=== PATIENT | male | born 1985 | race Caucasian/White ===

== ENCOUNTER 2020-09-04 17:09 | Outpatient (CLI) | payer OTHER, SELFPAY ==
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
== END 2020-09-04 17:29 ==
PROVIDERS: Visit Provider Nurse Practitioner Family
DX: M19.071 Primary osteoarthritis, right ankle and foot (principal); M79.671 Pain in right foot
CPT/HCPCS: 73610; 73630

== ENCOUNTER 2021-08-14 16:28 | Emergency (ER) | payer OTHER, SELFPAY ==
[2021-08-14] VITALS (24 sets, daily range): BP systolic 119–131; BP diastolic 79–101; PULSE 91–133; RESP 13–24; TEMP 36.6–39; O2SAT 88–95
--- NOTE | 2021-08-14 16:30 | RT.EKG_ITS ---
APPROVED REPORT Exam: Resting ECG Reason for Exam: difficulty breathing Patient Location: E HR:121 bpm ECG Measurements Heart Rate 121 AXIS VA 149 P 22 QRSd 91 QRS -87 QT 299 T 33 QTc 425 Conclusion Sinus tachycardia...rate> 99 Left anterior fascicular block...axis(240,-40), init forces inf ST elev, probable normal early repol pattern...ST elevation, age<55
--- NOTE | 2021-08-14 16:45 | DI.CT_ITS ---
Exam(s) CT CHEST PE CTA EXAM: CT CHEST PE CTA CLINICAL HISTORY: back pain, cough, +covid. TECHNIQUE: Imaging Protocol: Axial CT angiography was performed with multi-slice acquisition and mu lti-planar and/or 3D reconstructions. CONTRAST MATERIAL: Intravenous: Omnipaque 350 Contrast volume:100 mL COMPARISON: CT CHEST ABD PELVIS WITH CONTRAST from 01/25/2014 FINDINGS: The examination is limited due to patient motion artifact. Tracheobronchial tree: Patent where visualized. Pulmonary parenchyma: There is a patchy ground-glass infiltrate in the left upper lobe and left lower lobe. There are areas of scarring or atelectasis in the left lower lobe. No architectural distorti on. Pulmonary Arteries: No central pulmonary embolus is identified. The peripheral pulmonary arteries ar e difficult to evaluate due to patient motion. Mediastinum and Norma: No dominant adenopathy or fluid collection. Visualized thyroid gland: Unremarkable. Pleura: No effusion or pneumothorax. Heart: The heart is not dilated. No coronary artery calcifications are seen. No pericardial effusion. Aorta: Thoracic aorta non-dilated. No evidence of dissection. Upper abdomen: Unremarkable. Soft tissues: Unremarkable. Bones: Within normal limits for the patient's age.Old healed left rib fractures. IMPRESSION: 1. Limited evaluation of the peripheral pulmonary arteries due to significant patient motion artifact . No central pulmonary embolus is identified. If there is continued clinical concern, consider repe at examination. 2. Patchy ground-glass opacities consistent with an atypical pneumonia. Findings would be consistent with a COVID-19 etiology. 3. No evidence of thoracic aortic dissection or aneurysm. RADIATION DOSE DELIVERED: 583.52mGy.cm Total DLP DATA REPOSITORY: All CT scans at this facility are submitted to the National Radiology Data Registry (NRDR) Dose Index Registry (DIR) with the [employer] (ACR). RADIATION OPTIMIZATION: All CT scans at this facility use at least one of these dose optimization te chniques: automated exposure control; mA and/or kV adjustment per patient size (includes targeted exa ms where dose is matched to clinical indication); or iterative reconstruction.
[2021-08-14] MEDS: ACETAMINOPHEN 1,000 MG/100 ML BTL 400 MG IVPB (17:02)
[2021-08-14 17:05] LABS: Lactate 1.1 mmol/L (0.6-1.4)
[2021-08-14 17:16] LABS: Abs Immature Grans 0.02 10^3/uL (0.0-0.06); Absolute Basophil Count 0.02 10^3/uL (0.0-0.2); Absolute Eosinophil Count 0.13 10^3/uL (0.0-0.7); Absolute Lymphocyte Count 1.09 10^3/uL (1.2-3.4); Absolute Monocyte Count 0.63 10^3/uL (0.1-0.8); Absolute Neutrophil Count 4.07 10^3/uL (1.2-6.7); Basophils % 0.3; Eosinophils % 2.2; HGB 17.1 g/dL (13.5-17.5); Immature Grans % 0.3; Lymphocytes % 18.3; MCH 29.6 pg (27.0-33.0); MCHC 33.5 % (32.0-36.0); MCV 88.2 fL (80-95); Monocytes % 10.6; Neutrophils % 68.3; Nucleated RBC 0 %; Platelet Count 184 10^3/uL (130-400); RBC 5.78 10^6/uL (4.36-5.78); RDW 12.8 % (11.8-14.1); RDW-SD 41.5 fL; WBC 5.96 10^3/uL (4.4-10.8)
[2021-08-14] MEDS: Normal Saline - Diluent 50 ML VIAL IV ×2 (17:16→19:48)
[2021-08-14] MEDS: Normal Saline Flush 10 ML SYR IVP (17:17)
[2021-08-14] MEDS: Omnipaque 350 MG/ML 100 ML BTL IJ ×2 (17:17→19:48)
[2021-08-14 17:24] LABS: ALT 46 U/L (16-63); AST 40 U/L (15-37); Albumin 4.2 g/dL (3.4-5.0); Alkaline Phosphatase 49 U/L (46-116); Anion Gap 7.9 mmol/L (3-11); BUN 16 mg/dL (7-18); Bilirubin, Total 0.5 mg/dL (0.2-1.0); CO2 30.1 mmol/L (21.0-32.0); CREATININE 1.3 mg/dL (0.70-1.30); Calcium 8.8 mg/dL (8.5-10.1); Chloride 98 mmol/L (98-107); Glucose 113 mg/dL (74-106); Sodium 136 mmol/L (136-145); Total Protein 8.4 g/dL (6.4-8.2)
[2021-08-14 17:25] LABS: Troponin I < 0.05 ng/mL (<0.06)
--- NOTE | 2021-08-14 17:42 | ED.GENADUL_ITS ---
Discharge Plan Disposition Patient Disposition: HOME Condition: Stable Discharge Details Clinical Impression: COVID-19 Primary Care Provider: None,None ED Provider: Tiffany Luna Home Meds and New Rx's Prescriptions: Continued levalbuterol tartrate [Xopenex HFA] 1 PUFF HFA aerosol inhaler 2 puff Inhalation PRN PRNRF: 0 albuterol sulfate [ProAir HFA] 200 PUFF HFA aerosol inhaler 0 gm Inhalation Q4H PRN PRN (Reason: Wheezing) Qty: 1 RF: 0 Flovent Diskus 100 mcg/actuation Blister With Device 2 inh INHALATION DAILY RF: 0 Discharge Instructions Instructions: COVID-19 (Coronavirus Disease 2019) (ED) Additional Instructions: Your symptoms are most consistent with COVID-19. Please encourage hydration. You did appear dehydrated when you first arrived. You may use Tylenol and/or ibuprofen as needed for discomfort or fevers. Please continue to monitor your home oxygen. If less than 90 I would like for you to return to the emergency department for further evaluation. Please continue to treat any wheezing or asthma symptoms as you have historically. Please follow-up with your primary care in 1 week for reevaluation. If you develop any new or worsening symptoms please seek care urgently once again. Please continue to quarantine. Medical Decision Making Patient is a pleasant 36-year-old gentleman presenting today with chief complaint of chills, cough and back pain. He states the back pain is chronic, associates with previous fracture. States he was diagnosed Covid positive yesterday. Patient is not vaccinated. Patient does have a history of asthma. States that he has been short of breath and has been sounding his updraft very beneficial. Not currently feeling significantly short of breath. Has not taken anything for his chills or discomfort. Denies any GI upset. He does endorse loss of taste and smell. Denies any chest pain. On exam, patient appears nontoxic. He is notably tachycardic, particularly with movement. He is febrile with a temp of 39. Maintaining his oxygen saturation. Blood pressure is normal. Patient does appear dry on exam. Lungs are clear./No tachycardia, his cardiac auscultation is normal. Abdomen benign. No lower extremity edema. No exam of his back twinge appreciate any rash. He does have good movement. However, he is tender over the lumbar spine but again, this seems to be chronic in nature and is not endorsing any acute change in this. The patient's notable tachycardia, cough and intermittent shortness of breath, I do feel that CT PE protocol would be appropriate. We will give IV acetaminophen and replenish fluids. Patient is obese and has a history of asthma. I do feel that his risk factors make him eligible for Mab infusion. Patient I discussed risk/benefits as well as potential complications associated with this infusion. He voiced understandi ng would like to move forward. Labs reviewed. No leukocytosis. Stable H&H. Lymphocytes are slightly low, consistent with Covid. Lactate within normal levels. CMP without significant abnormality. AST is slightly elevated at 40. CT reviewed by radiologist: FINDINGS: Limitations: Moderate respiratory motion artifact degrades the images of the bilateral segmental and subsegmental pulmonary arteries. Pulmonary arteries: Given the limitation, there are no large filling defects within the main left or right pulmonary artery or its lobar branches. Aorta: Unremarkable. No aortic aneurysm. No aortic dissection. Lungs: A few patchy scattered bilateral rounded peripheral opacities consistent with an atypical pneumonia. More focal atelectasis versus consolidation in the lingula. Pleural spaces: Unremarkable. No pneumothorax. No pleural effusion. Heart: Unremarkable. No cardiomegaly. No pericardial effusion. Lymph nodes: Unremarkable. No enlarged lymph nodes. Bones/joints: Multiple old healed posteromedial mid to lower left rib fractures. Fixation screw partially visualized in L1. No acute fracture in the chest. Soft tissues: Unremarkable. IMPRESSION: 1. Limited CT angiogram due to significant motion degradation artifact. Given the limitation, there are no large central filling defects within the main or lobar bilateral pulmonary artery branches. Evaluation to the segmental and subsegmental levels is not possible. If clinical suspicion for PE remains high and renal function is satisfactory, consider a repeat study. 2. Bilateral patchy parenchymal opacities consistent with an atypical pneumonia. 3. No evidence for thoracic aortic dissection or aneurysm. Patient received Mab infusion. Received 1 L of fluids as well as Tylenol. Reevaluated patient. Significant improvement. Heart rate is 79. Maintaining pulse ox of 90. He states that his pain is significantly improved. His temp is down. We discussed the limitations associated with the CT. As he continues to be slightly tachycardic, particularly with movement, and had significant tachycardia initially, I do feel that repeating the CT would be appropriate to rule out pulmonary embolism. Patient I discussed risk and benefits of repeat CT he would like to move forward with this. His creatinine clearance is normal. We will continue to hydrate the patient. Repeat CT reviewed by radiologist: FINDINGS: Pulmonary arteries: Contrast fills the pulmonary artery and its branch vessels satisfactorily. No intraluminal filling defect to suggest pulmonary embolism. A pseudo filling defect is identified in a branch of the right upper lobe pulmonary arteries best seen on series 6, image 213 adjacent to dense filling contrast in the SVC. Findings likely district sales representative of a reconstruction CT artifact. Aorta: Unremarkable. No aortic aneurysm. No aortic dissection. Trachea: Layering secretions in the lower trachea/tim. Lungs: Bilateral faint patchy peripheral parenchymal opacities consistent with an atypical pneumonia. Tiny foci of lingular and bilateral lower lobe aspirations. Pleural spaces: Unremarkable. No pneumothorax. No pleural effusion. Heart: Unremarkable. No cardiomegaly. No pericardial effusion. Lymph nodes: Prominent reactive bilateral hilar and mediastinal lymph nodes. Bones/joints: Unremarkable. No acute fracture. Soft tissues: Unremarkable. IMPRESSION: 1. No pulmonary embolism. 2. Bilateral patchy parenchymal opacities consistent with an atypical pneumonia.Imaging features can be seen with COVID-19 pneumonia, though are nonspecific and can occur with a variety of infectious and noninfectious processes. (Reference: Jeffry) 3. Layering secretions in the tracheobronchial tree. Tiny the foci of lingular and bilateral lower lobe aspirations. 4. Reactive mediastinal and bilateral hilar lymph nodes. Discussed findings with the patient. He reports he is feeling much improved. Will continue to quarantine. He was sent home with pulse oxymeter. Will continue to monitor at home. Will use his albuterol as previously prescribed. Return precautions discussed. All of his quesitons and concerns were addressed, he is in agreement with this plan. [facility]. HPI General Mode of arrival: ambulatory . Date/Time Provider Initiated Documentation: 08/14/21 16:30 . Limitations to Documentation: no limitations . Information obtained by: RN notes reviewed . History of Present Illness 36 year old M presents to the emergency department with the chief complaint of COVID- 19, cough, fever, chills, back pain, described as moderate, with intensity rated at 8. Quality is described as aching, and is localized to the chest (cough) and back. Patient reports no radiation. Patient started experiencing this day(s) and it has been constant. No relieving factors improve symptom(s), No exacerbating factors reported . Patient notes cough, diaphoresis, fever/chills and shortness of breath; denies chest pain, headaches, nausea/vomiting and rash. Patient did receive the following treatments prior to arrival, other (albuterol) Related Data Home Medications Medication Instructions Recorded Confirmed albuterol sulfate [ProAir HFA] 0 gm INHALATION Q4H PRN PRN #1 inh 05/08/13 08/14/21 levalbuterol tartrate [Xopenex HFA] 2 puff INHALATION PRN PRN 05/08/13 01/25/14 Flovent Diskus 2 inh INHALATION DAILY 08/14/21 08/14/21 Previous Rx's Medication Instructions Recorded albuterol sulfate [ProAir HFA] 0 gm INHALATION Q4H PRN PRN #1 inh 05/08/13 Allergies Allergy/AdvReac Type Severity Reaction Status Date / Time No Known Allergies Allergy Unverified 08/14/21 16:37 General Stated Complaint: RespSymp CHRIS: 3 Review of Systems Constitutional Constitutional: Reports as per HPI, Reports chills, Reports fever(s), Denies headache(s), Reports lethargy and Reports malaise ENT Ears, Nose, Mouth, and Throat: Reports dizziness and Denies headache(s) Cardiovascular Cardiovascular: Reports as per HPI, Denies chest pain, Denies chest pain at rest, Denies chest pain with activity, Denies edema, Reports lightheadedness and Reports dyspnea Respiratory Respiratory: Reports as per HPI, Denies chest congestion, Reports cough, Denies pain on inspiration, Denies pain with cough, Reports dyspnea and Denies wheezing Gastrointestinal Gastrointestinal: Reports as per HPI, Denies abdominal pain, Denies diarrhea, Denies nausea and Denies vomiting Genitourinary Genitourinary: Denies system reviewed and no additional complaints, except as documented (denies change in urinary habits) Musculoskeletal Musculoskeletal: Reports as per HPI and Reports back pain Integumentary/Breasts Skin/Breast: Reports as per HPI and Denies rash Neurologic Neurologic: Reports as per HPI, Reports dizziness and Denies headache(s) Allergic/Immunologic Allergic/Immunologic: Denies wheezing [facility] Medical History (Updated 08/14/21 @ 20:15 by KETURAH Harris) Asthma Social History Smoking/Tobacco Use Status: Current every day Smoking risk assessment performed?: Yes Drug use: Never Do you feel safe at home: Yes Do you feel safe in your relationship?: Yes Exam Const General: cooperative, healthy appearing, comfortable, no acute distress and well developed Nutritional Appearance: well nourished and obese Orientation: alert, awake and oriented x3 HENMT Head: normal to inspection Ears: hearing grossly normal bilaterally Mouth: mucous membranes dry Chest Chest: normal inspection of the chest, normal palpation of entire chest wall and no crepitus Resp Effort & Inspection: normal respiratory effort, able to speak in complete sentences and no respiratory distress Auscultation: clear to auscultation bilaterally, no rales, no rhonchi and no wheezes Cardio Rate: tachycardic Rhythm: regular rhythm Heart Sounds: S1 normal and S2 normal GI Inspection: normal to inspection, no edema and non-distended Palpation: soft, no hepatosplenomegaly, not firm, no guarding, not rigid and nontender Auscultation: normal bowel sounds Back/Spine/Pelvis Thoracic/Lumbar Spine: thoracic and lumbar spine normal to inspection, No paraspinal tenderness, No thoracic spinal tenderness and No lumbar spinal tenderness (pain over right side of lower back) Skin General skin exam: no rashes or lesions noted Trauma: no lacerations or abrasions Neuro General: patient alert, patient awake and patient oriented x3 Cognition: normal cognition Speech: speech normal Gait: normal gait Extrem General: normal to inspection, capillary refill normal, no pedal edema, no calf tenderness and normal gait Psych Appearance: grossly normal and well kempt Mental Status: mental status grossly normal Speech and Movement: speech and movement normal Course Vital Signs Vital signs: Vital Signs Temperature 39.0 C H 08/14/21 16:34 Pulse 133 H 08/14/21 16:34 Respiratory Rate 18 08/14/21 16:34 Blood Pressure 129/101 H 08/14/21 16:34 Pulse Oximetry 93 08/14/21 16:34 Temperature 39.0 C H 08/14/21 17:02 Temperature Source Oral 08/14/21 16:34 Pulse 133 H 08/14/21 16:34 Respiratory Rate 18 08/14/21 16:34 Respiratory Effort 08/14/21 17:13 Blood Pressure 129/101 H 08/14/21 16:34 Pulse Oximetry 93 08/14/21 16:34 Pain Level 8 08/14/21 17:02 Lab/Test Results Lab/Test Results: Laboratory Tests Range/Units 08/14/21 08/14/21 08/14/21 16:55 16:55 16:55 WBC (4.4-10.8) 10^3/uL 5.96 RBC (4.36-5.78) 10^6/uL 5.78 Hgb (13.5-17.5) g/dL 17.1 Hct (40.0-50.0) % 51.0 H MCV (80-95) fL 88.2 MCH (27.0-33.0) pg 29.6 MCHC (32.0-36.0) % 33.5 RDW (11.8-14.1) % 12.8 Plt Count (130-400) 10^3/uL 184 MPV (8.0-11.0) fL 10.0 Immature Gran % 0.3 Neutrophils % 68.3 Lymphocytes % 18.3 Monocytes % 10.6 Eosinophils % 2.2 Basophils % 0.3 Nucleated RBC % % 0 Absolute Neutrophils (1.2-6.7) 10^3/uL 4.07 Absolute Lymphocytes (1.2-3.4) 10^3/uL 1.09 L Absolute Monocytes (0.1-0.8) 10^3/uL 0.63 Absolute Eosinophils (0.0-0.7) 10^3/uL 0.13 Absolute Basophils (0.0-0.2) 10^3/uL 0.02 VBG Lactate (0.6-1.4) mmol/L 1.1 Sodium (136-145) mmol/L 136 Potassium (3.5-5.1) mmol/L 4.0 Chloride (98-107) mmol/L 98 Carbon Dioxide (21.0-32.0) mmol/L 30.1 Anion Gap (3-11) mmol/L 7.9 BUN (7-18) mg/dL 16 Creatinine (0.70-1.30) mg/dL 1.3 Estimated GFR/1.73 m2 (mL/min/1.73m2) >= 60.00 Glucose (74-106) mg/dL 113 H Calcium (8.5-10.1) mg/dL 8.8 Total Bilirubin (0.2-1.0) mg/dL 0.5 AST (15-37) U/L 40 H ALT (16-63) U/L 46 Alkaline Phosphatase (46-116) U/L 49 Troponin I (<0.06) ng/mL < 0.05 Total Protein (6.4-8.2) g/dL 8.4 H Albumin (3.4-5.0) g/dL 4.2
--- NOTE | 2021-08-14 18:04 | DI.VRAD_ITS ---
PROCEDURE INFORMATION: Exam: CTA Chest With Contrast Exam date and time: 08/14/2021 4:50 PM Age: 36 years old Clinical indication: Other: Back pain, cough, covid positive TECHNIQUE: Imaging protocol: Computed tomographic angiography of the chest with contrast. 3D rendering (Not supervised by radiologist): MIP and/or 3D reconstructed images were created by the technologist. Radiation optimization: All CT scans at this facility use at least one of these dose optimization techniques: automated exposure control; mA and/or kV adjustment per patient size (includes targeted exams where dose is matched to clinical indication); or iterative reconstruction. Contrast material: OMNIPAQUE 350; Contrast volume: 100 ml; Contrast route: INTRAVENOUS (IV); COMPARISON: No relevant prior studies available. FINDINGS: Limitations: Moderate respiratory motion artifact degrades the images of the bilateral segmental and subsegmental pulmonary arteries. Pulmonary arteries: Given the limitation, there are no large filling defects within the main left or right pulmonary artery or its lobar branches. Aorta: Unremarkable. No aortic aneurysm. No aortic dissection. Lungs: A few patchy scattered bilateral rounded peripheral opacities consistent with an atypical pneumonia. More focal atelectasis versus consolidation in the lingula. Pleural spaces: Unremarkable. No pneumothorax. No pleural effusion. Heart: Unremarkable. No cardiomegaly. No pericardial effusion. Lymph nodes: Unremarkable. No enlarged lymph nodes. Bones/joints: Multiple old healed posteromedial mid to lower left rib fractures. Fixation screw partially visualized in L1. No acute fracture in the chest. Soft tissues: Unremarkable. IMPRESSION: 1. Limited CT angiogram due to significant motion degradation artifact. Given the limitation, there are no large central filling defects within the main or lobar bilateral pulmonary artery branches. Evaluation to the segmental and subsegmental levels is not possible. If clinical suspicion for PE remains high and renal function is satisfactory, consider a repeat study. 2. Bilateral patchy parenchymal opacities consistent with an atypical pneumonia. 3. No evidence for thoracic aortic dissection or aneurysm. Dictated and Authenticated by: Garcia Salazar MD. Ordering:ALEXANDRO Allen MD
--- NOTE | 2021-08-14 18:27 | NUR.NOTE ---
pt not tolerating BP cuff will recheck intermittently Nursing Note:
--- NOTE | 2021-08-14 19:00 | DI.CT_ITS ---
Exam(s) CT CHEST PE CTA EXAM: CT CHEST PE CTA CLINICAL HISTORY: motion artifact on initial, concerned for PE. TECHNIQUE: Imaging Protocol: Axial CT angiography was performed with multi-slice acquisition and mu lti-planar and/or 3D reconstructions. CONTRAST MATERIAL: Intravenous: Omnipaque 350 Contrast volume:100 mL COMPARISON: CT CT CHEST PE CTA from 08/14/2021 FINDINGS: Tracheobronchial tree: Patent where visualized. Pulmonary parenchyma: There are bilateral patchy ground-glass opacities in the lungs. There are foca l areas of consolidation involving the left lingula and left lower lobe. No architectural distortion . Pulmonary Arteries: No evidence of filling defect to suggest pulmonary emboli. Mediastinum and Norma: Mildly prominent reactive lymph nodes. Visualized thyroid gland: Unremarkable. Pleura: No effusion or pneumothorax. Heart: The heart is not dilated. No coronary artery calcifications are seen. No pericardial effusion. Aorta: Thoracic aorta non-dilated. No evidence of dissection. Upper abdomen: Unremarkable. Soft tissues: Unremarkable. Bones: Within normal limits for the patient's age.Old left rib fractures. IMPRESSION: 1. No evidence of pulmonary embolism, thoracic aortic dissection or aneurysm. 2. Bilateral ground-glass parenchymal opacities consistent with an atypical pneumonia such as can be seen with COVID-19 pneumonia among other infectious and noninfectious processes. RADIATION DOSE DELIVERED: 688.44mGy.cm Total DLP DATA REPOSITORY: All CT scans at this facility are submitted to the National Radiology Data Registry (NRDR) Dose Index Registry (DIR) with the [employer] (ACR). RADIATION OPTIMIZATION: All CT scans at this facility use at least one of these dose optimization te chniques: automated exposure control; mA and/or kV adjustment per patient size (includes targeted exa ms where dose is matched to clinical indication); or iterative reconstruction.
[2021-08-14] MEDS: Lactated Ringers 1,000 ML 1000 ML IV (19:10)
--- NOTE | 2021-08-14 20:07 | DI.VRAD_ITS ---
PROCEDURE INFORMATION: Exam: CTA Chest With Contrast Exam date and time: 08/14/2021 7:09 PM Age: 36 years old Clinical indication: Other: ? Pe TECHNIQUE: Imaging protocol: Computed tomographic angiography of the chest with contrast. 3D rendering (Not supervised by radiologist): MIP and/or 3D reconstructed images were created by the technologist. COMPARISON: CT CHEST PE CTA 08/14/2021 5:16 PM FINDINGS: Pulmonary arteries: Contrast fills the pulmonary artery and its branch vessels satisfactorily. No intraluminal filling defect to suggest pulmonary embolism. A pseudo filling defect is identified in a branch of the right upper lobe pulmonary arteries best seen on series 6, image 213 adjacent to dense filling contrast in the SVC. Findings likely account service representative of a reconstruction CT artifact. Aorta: Unremarkable. No aortic aneurysm. No aortic dissection. Trachea: Layering secretions in the lower trachea/tim. Lungs: Bilateral faint patchy peripheral parenchymal opacities consistent with an atypical pneumonia. Tiny foci of lingular and bilateral lower lobe aspirations. Pleural spaces: Unremarkable. No pneumothorax. No pleural effusion. Heart: Unremarkable. No cardiomegaly. No pericardial effusion. Lymph nodes: Prominent reactive bilateral hilar and mediastinal lymph nodes. Bones/joints: Unremarkable. No acute fracture. Soft tissues: Unremarkable. IMPRESSION: 1. No pulmonary embolism. 2. Bilateral patchy parenchymal opacities consistent with an atypical pneumonia.Imaging features can be seen with COVID-19 pneumonia, though are nonspecific and can occur with a variety of infectious and noninfectious processes. (Reference: Jeffry) 3. Layering secretions in the tracheobronchial tree. Tiny the foci of lingular and bilateral lower lobe aspirations. 4. Reactive mediastinal and bilateral hilar lymph nodes. REFERENCES: Jeffry Torres, et al., Radiological Society of [place] Expert Consensus Statement on Reporting Chest CT Findings Related to COVID-19. Endorsed by the Society of Thoracic Radiology, the [employer] [employer], and RSNA. Published January 23, 2020. Dictated and Authenticated by: Garcia Salazar MD. Ordering:ALEXANDRO Allen MD
== END 2021-08-14 20:39 | disposition home or self-care (01) ==
PROVIDERS: Emergency Provider Physician Assistant
DX: U07.1 COVID-19 (principal); R05.1 Acute cough; R06.02 Shortness of breath; R43.8 Other disturbances of smell and taste; R00.0 Tachycardia, unspecified; E86.0 Dehydration; R50.9 Fever, unspecified
CPT/HCPCS: 36415; 71275; 80053; 93005; 96361; 96365; 99285; 83605; 84484; 85025; 93010; J0131; J3490

== ENCOUNTER 2021-08-22 10:50 | Emergency (ER) | payer OTHER, SELFPAY ==
[2021-08-22 10:54] VITALS: BP 129/93; PULSE 90; RESP 16; TEMP 36.1; O2SAT 95
--- NOTE | 2021-08-22 11:20 | W.ED.GENAD ---
Discharge Plan Disposition Patient Disposition: HOME Condition: Stable Discharge Details Clinical Impression: Pharyngitis, Dental infection Primary Care Provider: Princess Lamas ED Provider: Tiffany Luna Home Meds and New Rx's Prescriptions: New penicillin V potassium 500 mg tablet 500 mg PO QID 7 Days Qty: 28 RF: 0 Continued levalbuterol tartrate [Xopenex HFA] 1 PUFF HFA aerosol inhaler 2 puff Inhalation PRN PRNRF: 0 albuterol sulfate [ProAir HFA] 200 PUFF HFA aerosol inhaler 0 gm Inhalation Q4H PRN PRN (Reason: Wheezing) Qty: 1 RF: 0 Flovent Diskus 100 mcg/actuation Blister With Device 2 inh INHALATION DAILY RF: 0 Discharge Instructions Instructions: Dental Abscess (ED), Pharyngitis (ED) Additional Instructions: Your rapid strep testing was negative here. However, I am concerned that you are developing a dental infection. Please take the antibiotics as prescribed. Even if symptoms improve, please take the entire course. You will need definitive care with a dentist, please call on Tuesday to schedule follow-up appointment. Encourage hydration. Tylenol and ibuprofen as needed for discomfort. If you develop fevers, increased pain, swelling or other new/worsening symptoms to seek care urgently once again. Referrals: Princess Lamas [Primary Care Provider] - Discharge Data Discharge Date/Time-TO BE ENTERED AT DEPARTURE: 08/22/21 11:35 Medical Decision Making Patient is a pleasant 36-year-old male presenting today with chief complaint of sore throat and left lower dental pain. Patient was seen by myself last week for Covid. In this regard, he states he is feeling much improved. However, the past 3 to 4 days has been having left lower dental pain that has progressively been increasing. Has been using Tylenol to help with discomfort. States T-max in the past 3 to 4 days has been < 100 ?F. On exam, patient appears nontoxic. Poor dentition noted. He has a fractured left lower tooth that is tender along buccal side. No signficant swelling, erythema or fluctuance. No swelling under tongue. No abnormality is posterior oropharynx. No lymphadenopathy. Lungs clear. Low suspicision for strep throat. Will obtain rapid test. Rapid test negative. Discussed finding with the patient. Will begin treatment for dental infection with his dental pain that has been increasing. He appears nontoxic. Will treat with abx. Gave ibuprofen for pain here. Discussed pain management at home. Return precautions discussed. Advised he will need definitive care with dentist. All of his questions and concerns were addressed, he is in agreement with this plan. HPI General Mode of arrival: ambulatory. Date/Time Provider Initiated Documentation: 08/22/21 10:56. Limitations to Documentation: no limitations. Information obtained by: patient and RN notes reviewed. History of Present Illness 36 year old M presents to the emergency department with the chief complaint of sore throat, dental pain, described as severe, with intensity rated at 8. Quality is described as aching, and is localized to the mouth. Patient reports no radiation. Patient started experiencing this day(s) (3-4) and it has been constant. No relieving factors improve symptom(s), No exacerbating factors reported . Patient notes cough (known COVID-19, cough and SOB improved); denies chest pain, fever/chills, loss of appetite, nausea/vomiting, rash and shortness of breath. Patient did receive the following treatments prior to arrival, none Related Data Home Medications Medication Instructions Recorded Confirmed albuterol sulfate [ProAir HFA] 0 gm INHALATION Q4H PRN PRN #1 inh 05/08/13 08/22/21 levalbuterol tartrate [Xopenex HFA] 2 puff INHALATION PRN PRN 05/08/13 01/25/14 Flovent Diskus 2 inh INHALATION DAILY 08/14/21 08/22/21 penicillin V potassium 500 mg PO QID 7 Days #28 tab 08/22/21 Previous Rx's Medication Instructions Recorded albuterol sulfate [ProAir HFA] 0 gm INHALATION Q4H PRN PRN #1 inh 05/08/13 penicillin V potassium 500 mg PO QID 7 Days #28 tab 08/22/21 Allergies Allergy/AdvReac Type Severity Reaction Status Date / Time No Known Allergies Allergy Unverified 08/22/21 11:33 General Stated Complaint: Sorethroat CHRIS: 4 Review of Systems Constitutional Constitutional: Reports as per HPI, Denies chills, Denies fatigue, Denies fever(s) and Denies headache(s) ENT Ears, Nose, Mouth, and Throat: Denies dysphagia, Denies dizziness, Denies headache(s), Denies hoarseness, Denies lip swelling, Denies nasal congestion, Denies odynophagia and Reports sore throat Cardiovascular Cardiovascular: Reports as per HPI, Denies chest pain and Denies dyspnea Respiratory Respiratory: Reports as per HPI, Reports cough (improving) and Denies dyspnea Gastrointestinal Gastrointestinal: Reports as per HPI, Denies dysphagia and Denies odynophagia Integumentary/Breasts Skin/Breast: Reports as per HPI, Denies rash and Denies skin pain Neurologic Neurologic: Reports as per HPI, Denies dizziness and Denies headache(s) Endocrine Endocrine: Denies fatigue Allergic/Immunologic Allergic/Immunologic: Denies lip swelling [facility] Medical History (Updated 08/22/21 @ 11:24 by KETURAH Harris) Asthma Social History Smoking/Tobacco Use Status: Never Smoking risk assessment performed?: Yes Alcohol Intake: current Alcohol Intake frequency: a few times a month Drug use: Never Substance use type: does not use Do you feel safe at home: Yes Do you feel safe in your relationship?: Yes Exam Const General: cooperative, healthy appearing, comfortable, no acute distress, well developed and well groomed Nutritional Appearance: well nourished and overweight Orientation: alert and awake [facility] Head: normal to inspection, normocephalic and atraumatic Ears: hearing grossly normal bilaterally, external ears normal and TM's normal bilaterally General nose exam: external nose normal and nares normal Face and sinus: normal facial exam, sinuses nontender and face symmetric Mouth: oral mucosae normal, tongue normal, no trismus and No restricted motion Teeth and gingiva: poor dentition Teeth image: 1. Area of fractured tooth. Tenderness along the buccal aspect. No pain along the lingual side. No significant swelling or erythema. No area of fluctuance to suggest abscess. No swelling under the tongue. No lymphadenopathy. Posterior oropharynx is erythematous but no swelling. Uvula is midline. Throat: posterior oropharynx abnormal (erythema), tonsils normal and uvula midline Eyes General: appearance normal, both eyes and all related structures Neck Neck: normal visual inspection, full ROM, no lymphadenopathy, supple and no anterior neck swelling Resp Effort & Inspection: normal respiratory effort, able to speak in complete sentences and no respiratory distress Auscultation: clear to auscultation bilaterally, no rales, no rhonchi and no wheezes Cardio Rate: regular rate Rhythm: regular rhythm Heart Sounds: S1 normal and S2 normal Skin General skin exam: no rashes or lesions noted Trauma: no lacerations or abrasions Neuro General: patient alert and patient awake Cognition: normal cognition Speech: speech normal Gait: normal gait Psych Appearance: grossly normal and well kempt Mental Status: mental status grossly normal Speech and Movement: speech and movement normal Course Vital Signs Vital signs: Vital Signs Temperature 36.1 C L 08/22/21 10:54 Pulse 90 08/22/21 10:54 Respiratory Rate 16 08/22/21 10:54 Blood Pressure 129/93 H 08/22/21 10:54 Pulse Oximetry 95 08/22/21 10:54 Temperature 36.1 C L 08/22/21 10:54 Temperature Source Skin 08/22/21 10:54 Pulse 90 08/22/21 10:54 Respiratory Rate 16 08/22/21 10:54 Blood Pressure 129/93 H 08/22/21 10:54 Blood Pressure Position Sitting 08/22/21 10:54 Pulse Oximetry 95 08/22/21 10:54 Oxygen Delivery Method Room Air 08/22/21 10:54 Oxygen Flow Rate 0 08/22/21 10:54 Pain Level 8 08/22/21 10:54 Comment difficulty swallowing 08/22/21 10:54 PAWSS Have you Been Recently Intoxicated or Drunk Within the Last 30 days?: No Have you Ever Experienced Previous Episodes of Alcohol Withdrawal?: No Have you ever Experienced Withdrawal Seizures?: No Have you ever Experienced Delirium Tremens(DT)s?: No Have you ever undergone Alcohol Rehabilitation Treatment (i.e, inpt ot outpatient treatment programs)?: No Have you ever Experienced Blackouts?: No Have you ever Combined Alcohol with other Downers within the last 90 days?: No Have you ever Combined Alcohol with any other Substance of Abuse during the last 90 days?: No Positive Blood Alcohol level on Presentation? [PCS.BAL]: No Evidence of Increased Autonomic Activity (i.e. HR>120, tremor, sweating, agitation, nausea)?: No Result: 0
[2021-08-22] MEDS: Ibuprofen 600 MG TAB PO (11:34)
== END 2021-08-22 11:35 | disposition home or self-care (01) ==
PROVIDERS: Emergency Provider Physician Assistant; PCP Nurse Practitioner Family
DX: J02.9 Acute pharyngitis, unspecified (principal); K04.7 Periapical abscess without sinus
CPT/HCPCS: 87880; 99283; 87081

== ENCOUNTER 2022-06-27 17:35 | Emergency (ER) | payer OTHER, SELFPAY ==
--- NOTE | 2022-06-27 18:30 | DI.RAD_ITS ---
Exam(s) XR ANKLE RT COMPLETE EXAM: XR ANKLE RT COMPLETE CLINICAL HISTORY: fall with ankle pain. TECHNIQUE: 2D digital imaging was performed. Three images were obtained. AP, lateral and oblique vi ews were obtained. COMPARISON: CR XR ANKLE RT COMPLETE from 09/04/2020 FINDINGS: BONES: There are stable post operative changes present. No new fracture or dislocation. JOINTS: The joint spaces are well maintained. No joint effusion is present. SOFT TISSUE: There is mild soft tissue swelling present. IMPRESSION: 1. Stable postoperative changes. 2. No acute fracture or dislocation. DATA REPOSITORY: RADIATION DOSE DELIVERED:
--- NOTE | 2022-06-27 18:30 | DI.RAD_ITS ---
Exam(s) XR FOOT RT COMPLETE EXAM: XR FOOT RT COMPLETE CLINICAL HISTORY: fall with great toe injury. TECHNIQUE: 2D digital imaging was performed of the right foot. Three images were obtained. AP, obl ique and lateral views were obtained. COMPARISON: CR XR FOOT RT COMPLETE from 09/04/2020 FINDINGS: BONES: No acute fracture is present. No bony destructive lesion is seen. Stable orthopedic hardware i s seen in the distal tibia and fibula. JOINTS: No dislocation present. There is a moderate hallux valgus deformity. Mild degenerative ramos es are seen at the 1st MTP joint. SOFT TISSUE: Normal. IMPRESSION: No acute fracture or dislocation. DATA REPOSITORY: RADIATION DOSE DELIVERED:
[2022-06-27 18:39] VITALS: BP 151/111; PULSE 89; RESP 18; TEMP 37.2; O2SAT 96
--- NOTE | 2022-06-27 18:46 | ED.GENADUL_ITS ---
Discharge Plan Disposition Patient Disposition: HOME Condition: Stable Discharge Details Clinical Impression: Sprain of great toe of right foot, Right ankle sprain Primary Care Provider: Princess Lamas ED Provider: Leonel Miller Home Meds and New Rx's Prescriptions: No Action levalbuterol tartrate [Xopenex HFA] 1 PUFF HFA aerosol inhaler 2 puff Inhalation PRN PRN albuterol sulfate [ProAir HFA] 200 PUFF HFA aerosol inhaler 0 gm Inhalation Q4H PRN PRN (Reason: Wheezing) Qty: 1 0RF Rx Instructions: does not have Flovent Diskus 100 mcg/actuation Blister With Device 2 inh INHALATION DAILY Discharge Instructions Instructions: Ankle Sprain (ED), Foot Sprain (ED) Additional Instructions: Please wear the provided walking boot for the next 1 to 2 weeks and then you may slowly advance activity as tolerated by pain and discomfort. Continue to take [id number] pain medication as needed for discomfort and if not improving in next 1 to 2 weeks follow-up with primary care provider for reassessment. Referrals: Princess Lamas [Primary Care Provider] - Discharge Data Discharge Date/Time-TO BE ENTERED AT DEPARTURE: 06/27/22 20:46 Medical Decision Making Patient presenting to the emergency department for chief complaint of ankle and great toe injury. He states [place] struck his right toe and ankle on a concrete curb. Patient denies any other injury or trauma. Physical exam shows significant tenderness to palpation of lateral and medial ankle along with palpation of the great toe. No tenderness to base of fifth metatarsal on the dorsal foot. Imaging given significant past medical history of previous ankle fracture fixation Review of radiological imaging as well as notation which shows no acute fracture but does show degenerative changes. Patient placed in a short walking boot for suspected sprain and encouraged to follow-up if not improving in the next couple weeks. After discussion of diagnosis and plan of care patient has no further needs, questions, or concerns and states clear understanding to return to the emergency department for any worsening symptoms. This documentation was generated using [employer] system, please disregard any oddities of phrase or misspellings. HPI General Mode of arrival: ambulatory . Date/Time Provider Initiated Documentation: 06/27/22 17:44 . Limitations to Documentation: no limitations . Information obtained by: RN notes reviewed . History of Present Illness 36 year old M presents to the emergency department with the chief complaint of fall with right ankle and toe injury, described as moderate, with intensity rated at 7. Quality is described as aching, and is localized to the right and lower extremity. Patient reports no radiation. Patient started experiencing this day(s) (1) and it has been constant. Movement worsens symptoms . Patient notes no other symptoms.. Patient did receive the following t reatments prior to arrival, none Related Data Home Medications Medication Instructions Recorded Confirmed albuterol sulfate 90 mcg/actuation 0 gm inhalation Q4H PRN PRN 05/08/13 06/27/22 aerosol inhaler (ProAir HFA) Wheezing #1 inh levalbuterol tartrate 45 2 puff inhalation PRN PRN 05/08/13 06/27/22 mcg/actuation aerosol inhaler (Xopenex HFA) fluticasone propionate 100 2 inh inhalation DAILY 08/14/21 06/27/22 mcg/actuation blister powder for inhalation (Flovent Diskus) Previous Rx's Medication Instructions Recorded albuterol sulfate 90 mcg/actuation 0 gm inhalation Q4H PRN PRN 05/08/13 aerosol inhaler (ProAir HFA) Wheezing #1 inh Allergies Allergy/AdvReac Type Severity Reaction Status Date / Time No Known Allergies Allergy Unverified 06/27/22 18:46 General Stated Complaint: Orthopedic CHRIS: 4 Review of Systems Narrative: 6 systems reviewed and unremarkable except what is marked below. Musculoskeletal Musculoskeletal: Reports as per HPI, Reports arthralgias, Reports joint swelling, Denies numbness and Reports tingling (Chronic to ankle due to surgery) Integumentary/Breasts Skin/Breast: Denies wounds Neurologic Neurologic: Denies numbness and Reports tingling (Chronic to ankle due to surgery) PFSH All Active Problems (Updated 06/27/22 @ 20:24 by Leonel Miller NP) COVID-19 (Acute) Pharyngitis (Acute) Dental infection (Acute) Sprain of great toe of right foot (Acute) Right ankle sprain (Acute) Medical History Asthma Social History Smoking/Tobacco Use Status: Current every day Tobacco Type: smokeless tobacco Smoking risk assessment performed?: Yes Alcohol Intake: current Alcohol Intake frequency: a few times a month Drug use: Never Substance use type: does not use Do you feel safe at home: Yes Do you feel safe in your relationship?: Yes Exam Const General: cooperative, no acute distress and not ill appearing Orientation: alert, awake and oriented x3 Resp Effort & Inspection: normal respiratory effort, able to speak in complete sentences and no respiratory distress Cardio Rate: regular rate Rhythm: regular rhythm Pulses: dorsalis pedis present and normal peripheral pulses Skin General skin exam: no rashes or lesions noted Neuro General: patient alert, patient awake, patient oriented x3, moves all extremities and no focal motor deficits Sensory Exam: no sensory deficits noted Extrem General: capillary refill normal and normal exam except as noted Right lower extremity: ankle Details: tenderness Location: of the medial malleolus, swelling Details: laterally and normal ROM; no abrasions and no lacerations and foot Details: tenderness Location: of the great toe, abnormal ROM of toe Details: pain with active ROM Location: of the great toe, edema Location: of the great toe and ecchymosis dorsal great toe Details: single Course Vital Signs Vital signs: Vital Signs Temperature 37.2 C 06/27/22 18:39 Pulse 89 06/27/22 18:39 Respiratory Rate 18 06/27/22 18:39 Blood Pressure 151/111 H 06/27/22 18:39 Pulse Oximetry 96 06/27/22 18:39 Temperature 37.2 C 06/27/22 18:39 Temperature Source Temporal Artery Scan 06/27/22 18:39 Pulse 89 06/27/22 18:39 Respiratory Rate 18 06/27/22 18:39 Respiratory Effort Non-Labored 06/27/22 18:44 Blood Pressure 151/111 H 06/27/22 18:39 Blood Pressure Position Sitting 06/27/22 18:39 Pulse Oximetry 96 06/27/22 18:39 Oxygen Delivery Method Room Air 06/27/22 18:39 Oxygen Flow Rate 0 06/27/22 18:39 Pain Level 7 06/27/22 18:44 PAWSS Have you Been Recently Intoxicated or Drunk Within the Last 30 days?: Yes Have you Ever Experienced Previous Episodes of Alcohol Withdrawal?: No Have you ever Experienced Withdrawal Seizures?: No Have you ever Experienced Delirium Tremens(DT)s?: No Have you ever undergone Alcohol Rehabilitation Treatment (i.e, inpt ot outpatient treatment programs)?: No Have you ever Experienced Blackouts?: No Have you ever Combined Alcohol with other Downers within the last 90 days?: No Have you ever Combined Alcohol with any other Substance of Abuse during the last 90 days?: No Result: 1
--- NOTE | 2022-06-27 20:13 | DI.VRAD_ITS ---
PROCEDURE INFORMATION: Exam: XR Right Foot Exam date and time: 06/27/2022 7:38 PM Age: 36 years old Clinical indication: Foot and toes; Right; Prior surgery; Surgery date: 6+ months; Surgery type: Ankle; Patient HX: Foot pain, pain in great toe TECHNIQUE: Imaging protocol: Radiologic exam of the Right foot. Views: 3 or more views. COMPARISON: CR XR FOOT RT COMPLETE 09/04/2020 2:10 PM FINDINGS: Bones/joints: Moderate degenerative disease of the 1st metatarsophalangeal joint and mild to moderate hallux valgus. No acute fracture. No acute dislocation. Previous distal tibia and fibular fracture repairs.. Soft tissues: No acute soft tissue pathology.. IMPRESSION: 1. Hallux valgus and degenerative features of the 1st metatarsophalangeal joint. No acute abnormalities of bones or soft tissue 2. Previous distal tibia and fibular fracture repairs. Metal hardware noted. Dictated and Authenticated by: Quan Diamond MD. Ordering:BETHANIE Castaneda MD
--- NOTE | 2022-06-27 20:14 | DI.VRAD_ITS ---
PROCEDURE INFORMATION: Exam: XR Right Ankle Exam date and time: 06/27/2022 7:35 PM Age: 36 years old Clinical indication: Ankle; Right; Prior surgery; Surgery date: 6+ months; Surgery type: Tripped on curb, pain TECHNIQUE: Imaging protocol: Radiologic exam of the Right ankle. Views: 3 or more views. COMPARISON: CR XR ANKLE RT COMPLETE 09/04/2020 2:10 PM FINDINGS: Bones/joints: Previous distal tibia and fibular fracture repairs with metal hardware. Fractures have healed. No acute fracture. No hardware failure or disruption. Soft tissues: Moderate soft tissue swelling surrounding the ankle. No soft tissue foreign body. IMPRESSION: 1. No acute fracture. 2. Previous fracture repairs. Hardware is unremarkable. Fractures have healed. 3. Soft tissue swelling. No gas or foreign body. Dictated and Authenticated by: Quan Diamond MD. Ordering:BETHANIE Castaneda MD
== END 2022-06-27 20:46 | disposition home or self-care (01) ==
PROVIDERS: Emergency Provider Nurse Practitioner Family; PCP Nurse Practitioner Family
DX: S93.501A Unspecified sprain of right great toe, initial encounter (principal); S93.401A Sprain of unspecified ligament of right ankle, initial encounter; W22.8XXA Striking against or struck by other objects, initial encounter; Y93.01 Activity, walking, marching and hiking; Y92.39 Other specified sports and athletic area as the place of occurrence of the external cause; F17.290 Nicotine dependence, other tobacco product, uncomplicated
CPT/HCPCS: 99284; 73610; 73630; 99282

== ENCOUNTER 2022-12-02 14:04 | Outpatient (REF) | payer OTHER, SELFPAY ==
[2022-12-02 15:41] LABS: Calculated LDL 125 mg/dL (<100); Cholesterol 194 mg/dL (<200); Glucose 163 mg/dL (74-106); HDL Cholesterol 50 mg/dL (40-60); Triglyceride 96 mg/dL (<150)
== END 2022-12-02 14:05 | disposition home or self-care (01) ==
LOC: NCHCN 14:04
PROVIDERS: PCP Nurse Practitioner Family; Visit Provider Nurse Practitioner Family
DX: Z00.00 Encounter for general adult medical examination without abnormal findings (principal)
CPT/HCPCS: 80061; 82947

== ENCOUNTER 2022-12-09 13:38 | Outpatient (REF) | payer OTHER, SELFPAY ==
[2022-12-09 16:06] LABS: Hemoglobin A1C 5.8 % (<5.7)
== END 2022-12-09 13:39 | disposition home or self-care (01) ==
LOC: NCHCN 13:38
PROVIDERS: PCP Nurse Practitioner Family; Visit Provider Nurse Practitioner Family
DX: R73.9 Hyperglycemia, unspecified (principal)
CPT/HCPCS: 83036

== ENCOUNTER 2023-01-28 00:38 | Outpatient (CLI) | payer OTHER, SELFPAY ==
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
[2023-01-28] MEDS: Barium Sulfate 2% W/V-Creamy Vanilla Smoothie 450 ML BTL PO ×2 (08:59→09:00)
[2023-01-28 09:02] LABS: Abs Immature Grans 0.03 10^3/uL (0.0-0.06); Absolute Basophil Count 0.05 10^3/uL (0.0-0.2); Absolute Lymphocyte Count 1.85 10^3/uL (1.2-3.4); Absolute Monocyte Count 0.61 10^3/uL (0.1-0.8); Absolute Neutrophil Count 4.95 10^3/uL (1.2-6.7); Basophils % 0.6; Eosinophils % 5.1; HCT 47.8 % (40.0-50.0); HGB 15.9 g/dL (13.5-17.5); Immature Grans % 0.4; Lymphocytes % 23.4; MCHC 33.3 % (32.0-36.0); MCV 90 fL (80-95); Monocytes % 7.7; Neutrophils % 62.8; Platelet Count 239 10^3/uL (130-400); RDW 12.5 % (11.8-14.1); RDW-SD 41.3 fL; WBC 7.89 10^3/uL (4.4-10.8)
[2023-01-28 09:43] LABS: ALT 42 U/L (16-63); AST 21 U/L (15-37); Albumin 3.9 g/dL (3.4-5.0); Alkaline Phosphatase 54 U/L (46-116); Anion Gap 6.1 mmol/L (3-11); BUN 13 mg/dL (7-18); Bilirubin, Total 0.3 mg/dL (0.2-1.0); CO2 30.9 mmol/L (21.0-32.0); CREATININE 0.9 mg/dL (0.70-1.30); Calcium 8.6 mg/dL (8.5-10.1); Calculated LDL 120 mg/dL (<100); Chloride 104 mmol/L (98-107); Cholesterol 191 mg/dL (<200); Estimated GFR 112.11 (mL/min/1.73m2); Ferritin 141 ng/mL (26-388); Folate 16.9 ng/mL (8.6-20.0); Glucose 117 mg/dL (74-106); HDL Cholesterol 52 mg/dL (40-60); Magnesium 2.1 mg/dL (1.8-2.4); Potassium 4.4 mmol/L (3.5-5.1); Sodium 141 mmol/L (136-145); TSH (W/Ref FT4) 0.57 uIU/mL (0.36-3.74); Total Protein 7.6 g/dL (6.4-8.2); Triglyceride 98 mg/dL (<150); Vitamin B12 264 pg/mL (193-986)
[2023-01-28 09:54] LABS: C-Reactive Protein 0.72 mg/dL (0.0-0.3)
[2023-01-28] MEDS: Normal Saline - Diluent 50 ML VIAL IJ (10:44)
[2023-01-28] MEDS: Normal Saline Flush 10 ML SYR IJ (10:44)
[2023-01-28] MEDS: Omnipaque 350 MG/ML 500 ML BTL-Imaging package 100 ML IJ (11:05)
== END 2023-01-28 00:58 ==
LOC: DI 00:46
PROVIDERS: PCP Nurse Practitioner Family; Visit Provider Surgery
DX: G47.33 Obstructive sleep apnea (adult) (pediatric) (principal); J45.909 Unspecified asthma, uncomplicated; L76.82 Other postprocedural complications of skin and subcutaneous tissue; M79.671 Pain in right foot; R03.0 Elevated blood-pressure reading, without diagnosis of hypertension; R10.9 Unspecified abdominal pain; R22.41 Localized swelling, mass and lump, right lower limb; R73.9 Hyperglycemia, unspecified; Z87.820 Personal history of traumatic brain injury; Z87.828 Personal history of other (healed) physical injury and trauma; Z98.1 Arthrodesis status; Z98.890 Other specified postprocedural states; M54.6 Pain in thoracic spine; M51.34 Other intervertebral disc degeneration, thoracic region; M54.59 Other low back pain; M51.37 Other intervertebral disc degeneration, lumbosacral region; R10.32 Left lower quadrant pain; R79.89 Other specified abnormal findings of blood chemistry
CPT/HCPCS: 80053; 80061; 72146; 72148; 74177; 82607; 82728; 82746; 83735; 84443; 85025; 86140

== ENCOUNTER 2025-10-10 12:20 | Outpatient (REF) | payer BC, SELFPAY ==
[2025-10-10 16:42] LABS: Hemoglobin A1C 6.6 % (<5.7)
[2025-10-11 18:54] LABS: Hepatitis C Ab w Rflx HCV PCR Negative (Negative)
[2025-10-11 18:57] LABS: HIV-1/2 Ag & Ab Screen Negative (Negative)
== END 2025-10-10 12:21 | disposition home or self-care (01) ==
LOC: NCHCN 12:20
PROVIDERS: Visit Provider Nurse Practitioner Family
DX: Z00.00 Encounter for general adult medical examination without abnormal findings (principal); R73.03 Prediabetes
CPT/HCPCS: 86803; 87389; 83036

== ENCOUNTER 2025-10-30 09:56 | Outpatient (REF) | payer BC, SELFPAY ==
[2025-10-30 18:11] LABS: Hemoglobin A1C 6.4 % (<5.7)
== END 2025-10-30 09:57 | disposition home or self-care (01) ==
LOC: NCHCN 09:56
PROVIDERS: Visit Provider Nurse Practitioner Family
DX: R73.09 Other abnormal glucose (principal)
CPT/HCPCS: 83036